=== PATIENT | female | born 1945 | race Caucasian/White ===

== ENCOUNTER 2021-05-24 08:00 | Outpatient (CLI) | payer MEDICARE, OTHER ==
--- NOTE | 2021-05-24 13:39 | XRAY Report ---
PROCEDURE: Sacrum/Coccyx INDICATIONS: SACRAL BACK PAIN TECHNIQUE: 3 views of the sacrum and coccyx acquired. COMPARISON: None FINDINGS: Bones: No fractures or dislocations. No suspicious bony lesions. Degenerative changes are present within the visualized lower lumbar spine. There is trace anterolisthesis of L4 on L5 and trace retrol isthesis of L3 on L4. Soft tissues: Visualized bowel gas pattern is normal. No suspicious soft tissue densities. IMPRESSION: Degenerative changes within the lower lumbar spine. No visualized acute fracture or dislocation. De Jesus clay, occult injury cannot be excluded. Recommend short interval imaging follow-up in 7-10 days as cli nically indicated for additional evaluation. Reviewed by: Antonia Long MD on 05/24/2021 1:38 PM PDT Approved by: Antonia Long MD on 05/24/2021 1:38 PM PDT Station ID: [id number]
== END 2021-05-24 23:59 | disposition home or self-care (01) ==
LOC: DI.S 08:00
PROVIDERS: ATTEND Physician Assistant Medical
DX: M47.816 Spondylosis without myelopathy or radiculopathy, lumbar region (principal)

== ENCOUNTER 2021-05-24 15:37 | Outpatient (CLI) | payer MEDICARE, OTHER ==
--- NOTE | 2021-05-24 16:23 | Ultrasound Report ---
PROCEDURE: Duplex Ext Veins Right INDICATIONS: PAIN IN RIGHT LOWER LEG TECHNIQUE: Real-time imaging, as well as color and pulse Doppler interrogation, were performed of the lower extr emity deep veins from the inguinal ligament to the popliteal fossa. COMPARISON: None. FINDINGS: The deep veins are normally compressible, and free of intraluminal thrombus. Color and pu lse Doppler demonstrate normal phasic intraluminal flow. There is normal augmentation response to di stal compression maneuver. IMPRESSION: No deep venous thrombosis. Reviewed by: Antonia Long MD on 05/24/2021 4:21 PM PDT Approved by: Antonia Long MD on 05/24/2021 4:21 PM PDT Station ID: [id number]
== END 2021-05-24 15:38 | disposition home or self-care (01) ==
LOC: DI 15:37
PROVIDERS: ATTEND Physician Assistant Medical
DX: M79.661 Pain in right lower leg (principal); N30.00 Acute cystitis without hematuria; M54.89 Other dorsalgia; R32 Unspecified urinary incontinence
CPT/HCPCS: 87086